=== PATIENT | male | born 1995 | race Caucasian/White ===

== ENCOUNTER → 2020-04-03 | Outpatient (CLI) | payer BC ==
--- NOTE | 2020-04-03 12:57 | RAD ---
Examination: TESTICULAR/SCROTUM History: TESTICULAR LUMP/PAIN / Comparison/Correlation: None Findings: Scrotal ultrasound exam was performed. Right testicle measures 4.7 cm x 3.4 cm x 2.2 cm the left testicle measures 3.9 cm x 2.6 and a 2 cm. Normal flow is evident with no evidence of torsion or epididymoorchitis. Medial to the right testicle and separate from it within the scrotal sac, there is a hypoechoic structure or region of thickening along the inner aspect of the scrotal wall. Central heterogeneous hyperechogenicity noted. This finding measures up to 0.9 cm x 0.8 cm in the axial plane and corresponds to the reported palpable abnormality. Minimal flow within it noted. Bilateral epididymides are unremarkable. Impression: Indeterminate structure within the right medial, inferior scrotal sac abutting the scrotal wall. This finding is separate from the testicle. Correlate for underlying inflammatory or possibly neoplastic process. Small right hydrocele. Electronically signed by: Ry Joseph MD (04/03/2020 12:55 PM) [id number]
== END ==
LOC: US 11:56
PROVIDERS: ATTEND Family Medicine
DX: N50.811 Right testicular pain (principal); N43.3 Hydrocele, unspecified
CPT/HCPCS: 76870